=== PATIENT | female | born 1985 ===

== ENCOUNTER 2024-10-08 09:39 | Emergency (ER) | payer OTHER, SELFPAY ==
--- NOTE | ~2024-10-08 | XR_ITS ---
EXAMINATION: XR chest 2V DATE: 10/08/2024 10:52 INDICATION: Cough. TECHNIQUE: Frontal and lateral views of the chest were obtained. COMPARISON: None. FINDINGS: There is no pneumonia, pleural effusion, or pneumothorax. The heart size is normal. IMPRESSION: 1. No acute cardiopulmonary disease. Reviewed, dictated and finalized at location [facility]. [facility]
[2024-10-08 10:06] VITALS: BP 124/87; PULSE 104; RESP 16; TEMP 37; O2SAT 100
--- NOTE | 2024-10-08 10:46 | ED.GENADULT ---
HPI - General Adult General Chief complaint: Upper Respiratory Infection Stated complaint: Chest Pain Source: patient Mode of arrival: ambulatory Limitations: no limitations History of Present Illness HPI narrative: Patient presents for evaluation of sick symptoms for last 10 days. Symptoms include sinus congestion, nasal drainage, exhaustion, body aches, chest heaviness, cough, mild shortness of breath. No nausea, vomiting or diarrhea. Her son is being evaluated here for similar symptoms. Her other son recently had pneumonia. She has taken some OTC cough and cold medication. She does vape. Related Data Allergies Allergy/AdvReac Type Severity Reaction Status Date / Time No Known Allergies Allergy Verified 10/08/24 10:14 Review of Systems Review of Systems: CONSTITUTIONAL: Reports fatigue. Denies fever, chills, or sweats. EYES: Denies visual changes, redness, or discharge. ENT: Reports sinus congestion and nasal drainage. Denies sore throat. CARDIOVASCULAR: Denies chest pain, palpitations, or edema. RESPIRATORY: Reports cough, chest heaviness and SOB GASTROINTESTINAL: Denies abdominal pain, nausea, vomiting, or diarrhea. GENITOURINARY: Denies dysuria or hematuria. SKIN: Denies rash or itching. MUSCULOSKELETAL: Reports generalized body aches NEUROLOGIC: Denies headache, numbness, dizziness, or weakness. PSYCHIATRIC: Denies anxiety or depression. COUNTS INCLUDE 234 BEDS AT THE [facility] Past Medical History Medical History No pertinent past medical history Surgical History Surgical History No pertinent past surgical history Family History Family History Mother Family history non-contributory Social History Social History Smoking status: Current every day smoker Tobacco type: e-cigarettes/vaping Alcohol intake: current Substance use: never Living arrangements: with family Gender identity (if verbalized by the patient): Female Sexual Orientation (if Verbalized by the Patient): Straight or Heterosexual Spiritual care concerns: No Exam Narrative: GENERAL: Well-appearing, well-nourished, and in no acute distress. HEAD: Normocephalic, atraumatic. EYES: PERRLA and EOMI. ENT: Nares clear, no rhinorrhea or epistaxis. Mucous membranes moist. Oropharynx without tonsillar hypertrophy exudate or other lesions. Bilateral TMs pearly mcgovern nonbulging NECK: Supple. No adenopathy or masses. No carotid bruits or JVD CHEST: Cough present on exam. Clear to auscultation. No respiratory distress. No wheezes rales or rhonchi HEART: Regular rate and rhythm. No murmur heard. Normal peripheral pulses. ABDOMEN: Soft, nontender, nondistended, normal active bowel sounds. EXTREMITIES: Normal range of motion. No edema. SKIN: Warm, dry, no rash. NEURO: No focal deficits. Alert and oriented x3. PSYCH: Normal mood and affect. Course Course Emergency Course: This is a 39-year-old female who presented for evaluation of sick symptoms. She took a home COVID and flu test, both of which were negative. Chest x-ray here normal. Son's chest x-ray here today normal as well. Exam is consistent with acute viral syndrome. Increase hydration. [id number] agents for symptom management. Follow up with primary provider. Go to the ER for worsening symptoms. Patient in agreement with plan of care Level of Care: Express Care Visit Vital Signs Vital signs: Vital Signs Temperature 37.0 C 10/08/24 10:06 Pulse Rate 104 H 10/08/24 10:06 Respiratory Rate 16 10/08/24 10:06 Blood Pressure 124/87 10/08/24 10:06 Pulse Oximetry 100 10/08/24 10:06 Temperature 37.0 C 10/08/24 10:06 Pulse Rate 104 H 10/08/24 10:06 Respiratory Rate 16 10/08/24 10:06 Blood Pressure 124/87 10/08/24 10:06 Pulse Oximetry 100 10/08/24 10:06 Medical Decision Making Vital Signs Vital Signs: Vital Signs Temperature 37.0 C 10/08/24 10:06 Pulse Rate 104 H 10/08/24 10:06 Respiratory Rate 16 10/08/24 10:06 Blood Pressure 124/87 10/08/24 10:06 Pulse Oximetry 100 10/08/24 10:06 Temperature 37.0 C 10/08/24 10:06 Pulse Rate 104 H 10/08/24 10:06 Respiratory Rate 16 12/22/24 10:06 Blood Pressure 124/87 10/08/24 10:06 Pulse Oximetry 100 10/08/24 10:06 Imaging Data Radiologist's impression: EXAMINATION: XR chest 2V DATE: 10/08/2024 10:52 INDICATION: Cough. TECHNIQUE: Frontal and lateral views of the chest were obtained. COMPARISON: None. FINDINGS: There is no pneumonia, pleural effusion, or pneumothorax. The heart size is normal. IMPRESSION: 1. No acute cardiopulmonary disease Discharge Plan Discharge Clinical Impression: Viral URI Patient Disposition: Home, Self-Care Condition: Stable Instructions: Antibiotic Form, Upper Respiratory Infection (ED), Viral Syndrome (ED) Patient Language: Indian Follow-up/Referrals: Andrzej Islas MD [Primary Care Provider] - Time of Disposition: 11:08
== END 2024-10-08 11:15 | disposition home or self-care (01) ==
PROVIDERS: Emergency Provider Nurse Practitioner; PCP Family Medicine
DX: J06.9 Acute upper respiratory infection, unspecified (principal); F17.290 Nicotine dependence, other tobacco product, uncomplicated
CPT/HCPCS: 71046; 99203; G0463